=== PATIENT | male | born 1960 | race Caucasian/White ===

== ENCOUNTER 2017-01-22 08:22 | Inpatient (IN) | payer OTHER ==
[~2017-01-22] VITALS: Ht 170.2 cm; Wt 124.2 kg
[~2017-01-22 08:22] MED LIST: ALLO300T2 PO; ASPI-435 PO; DILT120T8 PO; FLUT0.0529; INDO50CA97 PO; POTATAB2 PO; WARF-246 PO; WARF5TAB90 PO
[2017-01-22] MEDS ORDERED: OMEP20CA9 PO (09:02)
[2017-01-22] MEDS ORDERED: LOSA100T65 PO (09:02)
[2017-01-22] MEDS ORDERED: FLNIN/ NAE (09:03)
[2017-01-22] MEDS ORDERED: ONDANSETRON INJ 2 MG/ML 2 ML VIAL IV STA (09:30)
[2017-01-22] MEDS ORDERED: HYDROmorphone INJ 1 MG/ML SYR IV STA (09:30)
[2017-01-22] MEDS ORDERED: GI COCKTAIL PO STA (09:30)
[2017-01-22] MEDS ORDERED: SODIUM CHLORIDE 0.9% 1000ML 1,000 ML IV STA (09:30)
[2017-01-22] MEDS ORDERED: ALUMINUM/MAGNESIUM SUSP 30 ML UDC ONE (09:35)
[2017-01-22] MEDS ORDERED: LIDOCAINE HCL 2% VISC SOLN 20 ML UDC ONE (09:35)
[2017-01-22 09:39] LABS: BASO % 0.3 %; BASO ABS # 0.04 K/uL (0-0.2); COMPLETE YES; EOS % 0.1 %; HEMATOCRIT 46.8 % (42-52); IG% 0.4 %; LYMPH % 5.8 %; LYMPH ABS # 0.88 K/uL (1.2-3.4); MEAN CELL VOLUME 91.4 fL (80-100); MEAN CORPUSCULAR HEMOGLOBIN 31.8 pg (25-34); MEAN CORPUSCULAR HGB CONC 34.8 g/dl (32-36); MEAN PLATELET VOLUME 10.8 fL (7.4-10.4); MONO % 3.8 %; NEUT % 89.6 %; PLATELET COUNT 187 K/uL (130-400); RED BLOOD COUNT 5.12 M/uL (4.7-6.1); WHITE BLOOD COUNT 15.19 K/uL (4.8-10.8)
[2017-01-22] MEDS ORDERED: OPTIRAY 320 IV PRN (09:45)
[2017-01-22 09:46] LABS: ALT/SGPT 100 U/L (12-78); BLOOD UREA NITROGEN 12 mg/dl (7-18); CALCIUM 9.3 mg/dl (8.5-10.1); CARBON DIOXIDE 26 mmol/L (21-32); CHLORIDE 107 mmol/L (98-107); CREATININE 0.99 mg/dl (0.60-1.40); GLUCOSE 136 mg/dl (70-99); POTASSIUM 4.3 mmol/L (3.5-5.1); SODIUM 142 mmol/L (136-145)
--- NOTE | 2017-01-22 09:48 | DIAGNOSTIC IMAGING REPORT ---
SINGLE VIEW CHEST CLINICAL HISTORY: Generalized abdominal pain. FINDINGS: An AP, portable, upright chest radiograph is compared to study dated 11/11/2011. The examination is degraded by portable technique, apical lordotic positioning, large body habitus, and patient rotation. The cardiomediastinal silhouette is unremarkable. The lungs and pleural spaces are clear. No pneumothorax is seen. The bony thorax is grossly intact. Surgical clips are noted in the upper abdomen. IMPRESSION: No active disease in the chest. Electronically signed by: Trey Trejo M.D. 01/22/2017 9:47 AM Dictated Date/Time: 01/22/2017 9:46 AM
[2017-01-22 09:52] LABS: ALKALINE PHOSPHATASE 141 U/L (45-117); AST/SGOT 41 U/L (15-37)
[2017-01-22 10:11] LABS: URINE APPEARANCE CLEAR (CLEAR); URINE BILIRUBIN NEG (NEG); URINE COLOR YELLOW; URINE NITRITE NEG (NEG); URINE PH 6.5 (4.5-7.5); URINE SPECIFIC GRAVITY 1.019 (1.000-1.030); UROBILINOGEN NEG (NEG); ZZUR CULT IF INDIC CLEAN CATCH NO
[2017-01-22 10:22] LABS: MANUAL MICROSCOPIC REQUIRED? NO; REVIEW REQ? NO
--- NOTE | 2017-01-22 10:37 | DIAGNOSTIC IMAGING REPORT ---
CT SCAN OF THE ABDOMEN AND PELVIS WITH IV CONTRAST CLINICAL HISTORY: Epigastric abdominal pain. COMPARISON STUDY: Abdominal CT dated 10/09/2011. TECHNIQUE: Following the IV administration of 92 cc of Optiray 320, CT scan of the abdomen and pelvis is performed from the lung bases to the proximal femora. Images are reviewed in the axial, sagittal, and coronal planes. IV contrast was administered without complication. Automated dose control exposure was utilized. CT DOSE: 1416.14 mGy.cm FINDINGS: Lung bases: The heart is mildly enlarged and without pericardial effusion. Coronary artery calcifications are observed. The lung bases are clear noting dependent atelectasis. There is a tiny hiatal hernia. Liver: The contrast-enhanced liver is normal in size and contour. The liver demonstrates diffusely diminished attenuation consistent with hepatic steatosis. Fatty sparing is noted adjacent to the gallbladder fossa. There is no intrahepatic biliary ductal dilatation. The hepatic veins and portal veins are patent. Gallbladder: The gallbladder is mildly distended. The gallbladder wall appears thickened and there is mild pericholecystic inflammation. The appearance suggests acute cholecystitis. Spleen: Normal in size and attenuation. Pancreas: Moderately atrophic and grossly unremarkable. Adrenal glands: Unremarkable. Kidneys: The contrast enhanced kidneys demonstrate cortical atrophy and are without hydronephrosis. The kidneys enhance symmetrically. There are numerous (greater than 20) nonobstructing bilateral renal calculi. These measure up to 6 mm. Scattered subcentimeter cortical hypodensities likely represent cysts but are too small for definitive characterization. Abdominal vasculature: The abdominal aorta is normal in course and caliber noting mild to moderate atherosclerotic calcification. Stomach and bowel: There are postoperative changes from partial gastrectomy. The duodenum is normal in configuration. No bowel obstruction is identified. The appendix is well-visualized and normal. Peritoneum: There is no intraperitoneal free air or abdominal ascites. Findings suggest previous ventral hernia repair. Lymphadenopathy: None. Pelvic viscera: The prostate gland is enlarged and heterogeneous, measuring 6.0 cm in transverse diameter. There is median lobe hypertrophy. The bladder wall appears thickened and trabeculated suggesting chronic outlet obstruction. Numerous calcified phleboliths are observed. Skeletal structures: No lytic or blastic lesions are seen. IMPRESSION: 1. Findings suggest acute cholecystitis. Correlation with clinical findings and serum bilirubin levels will be required. Consider ultrasound of the right upper quadrant for further assessment. 2. There are postoperative changes from partial gastrectomy. No bowel obstruction is identified. 4. Mild hepatic steatosis. 5. Mild cardiomegaly. 6. There are numerous bilateral nonobstructing renal calculi. 7. Prostatomegaly with evidence of chronic bladder outlet obstruction. 8. Additional changes as above. Electronically signed by: Trey Trejo M.D. 01/22/2017 10:35 AM Dictated Date/Time: 01/22/2017 10:29 AM
[2017-01-22] MEDS ORDERED: PIPERACILLIN/TAZOBACTAM 4.5 GM/100ML D5W IV STA (10:48)
[2017-01-22] MEDS ORDERED: HYDROmorphone INJ 0.5 MG/0.5 ML SYR IV STA (10:57)
[2017-01-22] MEDS ORDERED: MoRPHine SULFATE 2 MG/ML CARP IV PRN ×2 (11:30)
[2017-01-22] MEDS ORDERED: ONDANSETRON INJ 2 MG/ML 2 ML VIAL IV PRN (11:30)
--- NOTE | 2017-01-22 11:59 | History and Physical ---
History & Physical Date & Time of Service: Jan 22, 2017 at 11:52 Chief Complaint: Chest Pain And Abdominal Pain Primary Care Physician: Bryan Husain M.D. (MEDICAL) History of Present Illness Source: patient Chip is a 56 year-old male who presented to emergency department this morning with complaint of abdominal pain that began at 0230 this morning. Pain is described as sharp pain mostly in the right upper abdomen with radiation to the chest and straight to the back. Denies of ever having this type of pain before. Does have history of kidney stones but this pain is not similar. Unaware if he has gallstones. Denies of any previous gallbladder problems. Did have associated nausea and vomiting. No known fever but felt warm this am. Placed a cold towel on his head due to feeling warm. Denies of any chills, sweats, chest pain, shortness of breathing, diarrhea, constipation, blood in stools, black/tarry stools, difficulty urinating. Chip states he has had 4 abdominal surgeries. Had a partial gastrectomy in 2000 due to stomach cancer. Did not require chemotherapy or radiation. Had a upper abdominal hernia repair in 2004 with mesh placement and few months later rejected the mesh which required removal and further hernia surgery. In 2000 he had another hernia surgery due to failure again and states he had mesh from the diaphragm down to the lower abdomen. (20 x 30 mesh per patient) No other abdominal surgeries. CT scan showed distended gallbladder with pericholecystic fluid consistent with acute cholecystitis Slight leukocytosis of 15 and elevated AST/ALT/Alk Phos 41/100/141 respectively Total and direct bilirubin within normal limits. Past Medical/Surgical History Medical Problems: (1) Gout Status: Chronic (2) HTN (hypertension) Status: Chronic (3) Stomach cancer Status: Resolved Family History Heart disease Social History Smoking Status: Never Smoker Smokeless Tobacco Use: Yes (1 can of snuff lasts 2-3 days) Alcohol Use: none Drug Use: none Marital Status: single Housing status: lives alone Occupational Status: employed Multi-Drug Resistant Organisms History of MDRO: No Allergies Coded Allergies: Ranitidine (Unverified Allergy, Mild, ALLERGY, 11/11/11) Home Medications Scheduled Allopurinol (Zyloprim), 450 MG PO DAILY Aspirin (Aspirin 81), 81 MG PO DAILY Diltiazem Hcl (Cardizem), 120 MG PO DAILY Fluticasone Propionate (Fluticasone Propionate), 2 SPRAY CRISTINA DAILY Losartan Potassium (Cozaar), 100 MG PO DAILY Omeprazole (Prilosec), 20 MG PO DAILY Potassium Citrate (Alkalinizer (Urocit-K 10), 1 TAB PO DAILY Scheduled PRN Indomethacin (Indocin), 50 MG PO TID PRN for Pain Review of Systems Constitutional: No chills, No fever, No sweats Respiratory: No cough, No shortness of breath, No wheezing Cardiovascular: No chest pain Abdomen: + nausea, + pain, + vomiting, No constipation, No diarrhea Genitourinary - Male: No dysuria, No hematuria, No urinary frequency Endocrine: No fatigue Integumentary: No rash Physical Exam Vital Signs Date Time Temp Pulse Resp B/P Pulse Ox O2 Delivery O2 Flow Rate FiO2 01/22/17 11:50 59 16 126/67 95 Room Air 01/22/17 11:49 58 01/22/17 10:34 59 16 138/66 96 Room Air 01/22/17 10:02 55 16 125/62 94 Room Air 01/22/17 09:48 62 18 115/77 97 Room Air 01/22/17 08:54 60 01/22/17 08:52 97 Room Air 01/22/17 08:46 97 Room Air 01/22/17 08:31 36.6 57 18 132/78 98 Room Air General Appearance: WD/WN, no apparent distress Head: normocephalic, atraumatic Eyes: sclerae normal ENT: hearing grossly normal Neck: supple, trachea midline Respiratory/Chest: chest non-tender, lungs clear, normal breath sounds, no respiratory distress, no accessory muscle use Cardiovascular: regular rate, rhythm, no murmur Abdomen/GI: soft, no organomegaly, no pulsatile mass, + tenderness (RUQ, negative Muphy's sign), + pertinent finding (Midline laparotomy incision from diaphragm to just below umbilicus. obese abdomen) Neurologic/Psych: alert, normal mood/affect, oriented x 3 Skin: normal color, warm/dry, no rash Diagnostics Laboratory Results Results Past 24 Hours Test 01/22/17 08:40 01/22/17 09:50 Range/Units White Blood Count 15.19 4.8-10.8 K/uL Red Blood Count 5.12 4.7-6.1 M/uL Hemoglobin 16.3 14.0-18.0 g/dL Hematocrit 46.8 42-52 % Mean Corpuscular Volume 91.4 80-100 fL Mean Corpuscular Hemoglobin 31.8 25-34 pg Mean Corpuscular Hemoglobin Concent 34.8 32-36 g/dl Platelet Count 187 130-400 K/uL Mean Platelet Volume 10.8 7.4-10.4 fL Neutrophils (%) (Auto) 89.6 % Lymphocytes (%) (Auto) 5.8 % Monocytes (%) (Auto) 3.8 % Eosinophils (%) (Auto) 0.1 % Basophils (%) (Auto) 0.3 % Neutrophils # (Auto) 13.61 1.4-6.5 K/uL Lymphocytes # (Auto) 0.88 1.2-3.4 K/uL Monocytes # (Auto) 0.58 0.11-0.59 K/uL Eosinophils # (Auto) 0.02 0-0.5 K/uL Basophils # (Auto) 0.04 0-0.2 K/uL RDW Standard Deviation 45.4 36.4-46.3 fL RDW Coefficient of Variation 13.5 11.5-14.5 % Immature Granulocyte % (Auto) 0.4 % Immature Granulocyte # (Auto) 0.06 0.00-0.02 K/uL Sodium Level 142 136-145 mmol/L Potassium Level 4.3 3.5-5.1 mmol/L Chloride Level 107 98-107 mmol/L Carbon Dioxide Level 26 21-32 mmol/L Anion Gap 9.0 3-11 mmol/L Blood Urea Nitrogen 12 7-18 mg/dl Creatinine 0.99 0.60-1.40 mg/dl Est Creatinine Clear Calc Drug Dose 107.8 ml/min Estimated GFR () 99.7 Estimated GFR (Non- 86.0 BUN/Creatinine Ratio 12.0 10-20 Random Glucose 136 70-99 mg/dl Calcium Level 9.3 8.5-10.1 mg/dl Total Bilirubin 0.7 0.2-1 mg/dl Direct Bilirubin 0.2 0-0.2 mg/dl Aspartate Amino Transf (AST/SGOT) 41 15-37 U/L Alanine Aminotransferase (ALT/SGPT) 100 12-78 U/L Alkaline Phosphatase 141 45-117 U/L Troponin I < 0.015 0-0.045 ng/ml Total Protein 7.2 6.4-8.2 gm/dl Albumin 3.9 3.4-5.0 gm/dl Lipase 145 73-393 U/L Urine Color YELLOW Urine Appearance CLEAR CLEAR Urine pH 6.5 4.5-7.5 Urine Specific Hugo 1.019 1.000-1.030 Urine Protein NEG NEG Urine Glucose (UA) NEG NEG Urine Ketones NEG NEG Urine Occult Blood NEG NEG Urine Nitrite NEG NEG Urine Bilirubin NEG NEG Urine Urobilinogen NEG NEG Urine Leukocyte Esterase NEG NEG Urine WBC (Auto) 1-5 0-5 /hpf Urine RBC (Auto) 0-4 0-4 /hpf Urine Hyaline Casts (Auto) 1-5 0-5 /lpf Urine Epithelial Cells (Auto) 10-20 0-5 /lpf Urine Bacteria (Auto) NEG NEG Diagnostic Radiology CT SCAN OF THE ABDOMEN AND PELVIS WITH IV CONTRAST CLINICAL HISTORY: Epigastric abdominal pain. COMPARISON STUDY: Abdominal CT dated 10/09/2011. TECHNIQUE: Following the IV administration of 92 cc of Optiray 320, CT scan of the abdomen and pelvis is performed from the lung bases to the proximal femora. Images are reviewed in the axial, sagittal, and coronal planes. IV contrast was administered without complication. Automated dose control exposure was utilized. CT DOSE: 1416.14 mGy.cm FINDINGS: Lung bases: The heart is mildly enlarged and without pericardial effusion. Coronary artery calcifications are observed. The lung bases are clear noting dependent atelectasis. There is a tiny hiatal hernia. Liver: The contrast-enhanced liver is normal in size and contour. The liver demonstrates diffusely diminished attenuation consistent with hepatic steatosis. Fatty sparing is noted adjacent to the gallbladder fossa. There is no intrahepatic biliary ductal dilatation. The hepatic veins and portal veins are patent. Gallbladder: The gallbladder is mildly distended. The gallbladder wall appears thickened and there is mild pericholecystic inflammation. The appearance suggests acute cholecystitis. Spleen: Normal in size and attenuation. Pancreas: Moderately atrophic and grossly unremarkable. Adrenal glands: Unremarkable. Kidneys: The contrast enhanced kidneys demonstrate cortical atrophy and are without hydronephrosis. The kidneys enhance symmetrically. There are numerous (greater than 20) nonobstructing bilateral renal calculi. These measure up to 6 mm. Scattered subcentimeter cortical hypodensities likely represent cysts but are too small for definitive characterization. Abdominal vasculature: The abdominal aorta is normal in course and caliber noting mild to moderate atherosclerotic calcification. Stomach and bowel: There are postoperative changes from partial gastrectomy. The duodenum is normal in configuration. No bowel obstruction is identified. The appendix is well-visualized and normal. Peritoneum: There is no intraperitoneal free air or abdominal ascites. Findings suggest previous ventral hernia repair. Lymphadenopathy: None. Pelvic viscera: The prostate gland is enlarged and heterogeneous, measuring 6.0 cm in transverse diameter. There is median lobe hypertrophy. The bladder wall appears thickened and trabeculated suggesting chronic outlet obstruction. Numerous calcified phleboliths are observed. Skeletal structures: No lytic or blastic lesions are seen. IMPRESSION: 1. Findings suggest acute cholecystitis. Correlation with clinical findings and serum bilirubin levels will be required. Consider ultrasound of the right upper quadrant for further assessment. 2. There are postoperative changes from partial gastrectomy. No bowel obstruction is identified. 4. Mild hepatic steatosis. 5. Mild cardiomegaly. 6. There are numerous bilateral nonobstructing renal calculi. 7. Prostatomegaly with evidence of chronic bladder outlet obstruction. 8. Additional changes as above. CXR normal Impression Assessment and Plan Acute Cholecystitis -Leukocytosis of 15.1 - afebrile - CT scan showing distended gallbladder and wall thickening and pericholecystic fluid - Elevated LFTS, bilirubin within normal limits Plan: Plan to admit patient to Med/Surg under observation with IV fluids, IV antibiotics, IV pain medication prn Will order an ultrasound of the RUQ to evaluate for any gallstones , if equivocal will order HIDA scan Patient's pain is controlled, no acute abdomen, negative Greenberg's sign Given patient's extensive abdominal surgery history of hernia repairs with mesh and most recent placement of large mesh 20 x 30 will see if patients pain can be controlled with conservative treatment and re-evaluate Will recheck am labs including cbc, bmp, and LFTs May have clear liquids NPO after midnight SCDs Dr. Arango has seen and examined patient, agrees with assessment and plan. Level of Care Med/Surg VTE Prophylaxis VTE Risk Assessment Done? Y/N: Yes Risk Level: Low Given or contraindicated: SCD's Note I interview and examined this patient and I agree with the above note. He has upper abdominal pain with a CT suggesting a 4 mm gallbladder wall and fluid around the gallbladder. He has had extensive upper abdominal surgery which I think would make surgical intervention difficult. I would get an ultrasound prior to entertaining surgical intervention.
--- NOTE | 2017-01-22 12:34 | DIAGNOSTIC IMAGING REPORT ---
ULTRASOUND RIGHT UPPER QUADRANT ABDOMEN CLINICAL HISTORY: Epigastric abdominal pain. COMPARISON STUDY: Abdominal CT dated 01/22/2017. TECHNIQUE: Real-time, grayscale, and color flow sonography of the right upper quadrant of the abdomen was performed. Images are reviewed in the transverse and longitudinal planes. FINDINGS: Liver: The liver is normal in size and demonstrates heterogeneously increased echotexture echotexture consistent with hepatic steatosis. Fatty sparing is seen adjacent to gallbladder fossa. There is no intrahepatic biliary ductal dilatation. The main portal vein is patent. Gallbladder: Small gallbladder polyps measure up to 7 mm. The gallbladder is normal in appearance. No gallstones are identified. There is no gallbladder wall thickening or pericholecystic fluid. A sonographic Greenberg's sign is reportedly absent. The common bile duct measures up to 0.5 cm in diameter. Pancreas: Not well visualized due to overlying bowel gas. Right kidney: Survey images of the right kidney demonstrate cortical atrophy. There is no hydronephrosis. Ascites: None. IMPRESSION: 1. No gallstones are identified and there is no sonographic evidence of acute cholecystitis. The CT findings could not be corroborated. If there is strong clinical concern for acute cholecystitis consider nuclear hepatobiliary scan to assess for patency of the cystic duct. 2. Hepatic steatosis. 3. The pancreas was not well visualized due to overlying bowel gas. 4. A 7 mm gallbladder polyp is incidentally noted. Electronically signed by: Trey Trejo M.D. 01/22/2017 12:32 PM Dictated Date/Time: 01/22/2017 12:29 PM
[2017-01-22] MEDS ORDERED: IV FLUIDS COMPLETED PRN (12:45)
[2017-01-22] MEDS ORDERED: MoRPHine SULFATE 4 MG/ML 1 ML CARP\\VIAL ONE (13:34)
[2017-01-22 14:30] VITALS: BP 149/77; PULSE 56; TEMP 36.8; O2SAT 95
[2017-01-22] MEDS: SODIUM CHLORIDE 0.9% 1000ML 1,000 ML IV SCH ×2 (14:59→19:29)
[2017-01-22 15:01] VITALS: BP 118/75; PULSE 72; TEMP 36.3; O2SAT 95
--- NOTE | 2017-01-22 15:04 | EMERGENCY ROOM VISIT NOTE ---
History Report prepared by Adam: Shae Og Under the Supervision of: Dr. Ab Pearce D.O. First contact with patient: 09:23 Chief Complaint: CHEST PAIN Stated Complaint: CHEST PAIN AND ABDOMINAL PAIN Nursing Triage Summary: Abdominal pain radiating to chest and back starting 0230. Took 4 baby asa [employer]. pt also reports hx of stomach ca in 2000 History of Present Illness The patient is a 56 year old male who presents to the Emergency Room with complaints of persistent abdominal pain starting around 0230 this morning. He describes his pain as a burning and rates his discomfort as a 9/10 in severity. The pain radiates up into his chest and into his back. He has experienced a similar pain with hernias before, but states that this pain is worse and persisting. He states that the pain is worse than the kidney stones he had previously experienced. He denies any jaw pain, arm pain, or SOB. There is no change to his pain when he is walking or lying down. His last bowel movement was 3 hours ago and was normal. The patient still has his gallbladder and appendix. He denies any history of problems with his aorta. He has a history of stomach cancer and hypertension. Source of History: patient Onset: 0230 this morning Position: abdomen Symptom Intensity: 9/10 Quality: burning Timing: other (persistent) Associated Symptoms: + back pain, + chest pain, No SOB Note: Pt denies changes in bowel movements, jaw pain or arm pain. Review of Systems See HPI for pertinent positives & negatives. A total of 10 systems reviewed and were otherwise negative. Past Medical & Surgical Medical Problems: (1) Acute cholecystitis (2) Gout (3) HTN (hypertension) (4) Stomach cancer Family History Heart disease Social History Smoking Status: Never Smoker Alcohol Use: occasionally Marital Status: single Housing Status: lives with family Occupation Status: employed Current/Historical Medications Scheduled Allopurinol (Zyloprim), 450 MG PO DAILY Aspirin (Aspirin 81), 81 MG PO DAILY Diltiazem Hcl (Cardizem), 120 MG PO DAILY Fluticasone Propionate (Fluticasone Propionate), 2 SPRAY CRISTINA DAILY Losartan Potassium (Cozaar), 100 MG PO DAILY Omeprazole (Prilosec), 20 MG PO DAILY Potassium Citrate (Alkalinizer (Urocit-K 10), 1 TAB PO DAILY Scheduled PRN Indomethacin (Indocin), 50 MG PO TID PRN for Pain Allergies Coded Allergies: Ranitidine (Unverified Allergy, Mild, ALLERGY, 11/11/11) Physical Exam Vital Signs Date Time Temp Pulse Resp B/P Pulse Ox O2 Delivery O2 Flow Rate FiO2 01/22/17 10:34 59 16 138/66 96 Room Air 01/22/17 10:02 55 16 125/62 94 Room Air 01/22/17 09:48 62 18 115/77 97 Room Air 01/22/17 08:54 60 01/22/17 08:52 97 Room Air 01/22/17 08:46 97 Room Air 01/22/17 08:31 36.6 57 18 132/78 98 Room Air Physical Exam GENERAL: Sitting up in bed, holding epigastric region EYE EXAM: normal conjunctiva OROPHARYNX: no exudate, no erythema, lips, buccal mucosa, and tongue normal and mucous membranes are moist NECK: supple, no nuchal rigidity, no adenopathy, non-tender LUNGS: Clear to auscultation. Normal chest wall mechanics HEART: no murmurs, S1 normal and S2 normal ABDOMEN: abdomen soft, normo-active bowel sounds, no masses, no rebound or guarding. Tenderness to palpation supraumbilically without RUQ tenderness. BACK: Back is symmetrical on inspection and there is no deformity, no midline tenderness, no CVA tenderness. SKIN: no rashes and no bruising UPPER EXTREMITIES: upper extremities are grossly normal. LOWER EXTREMITIES: No pitting edema. NEURO EXAM: Normal sensorium, cranial nerves II-XII grossly intact, normal speech, no gross weakness of arms, no gross weakness of legs. Medical Decision & Procedures ER Provider Diagnostic Interpretation: Xray results per the radiologist and my interpretation. Other results have been interpreted by the radiologist and reviewed by me. SINGLE VIEW CHEST CLINICAL HISTORY: Generalized abdominal pain. FINDINGS: An AP, portable, upright chest radiograph is compared to study dated 11/11/2011. The examination is degraded by portable technique, apical lordotic positioning, large body habitus, and patient rotation. The cardiomediastinal silhouette is unremarkable. The lungs and pleural spaces are clear. No pneumothorax is seen. The bony thorax is grossly intact. Surgical clips are noted in the upper abdomen. IMPRESSION: No active disease in the chest. Electronically signed by: Trey Trejo M.D. 01/22/2017 9:47 AM Dictated Date/Time: 01/22/2017 9:[address] SCAN OF THE ABDOMEN AND PELVIS WITH IV CONTRAST CLINICAL HISTORY: Epigastric abdominal pain. COMPARISON STUDY: Abdominal CT dated 10/09/2011. TECHNIQUE: Following the IV administration of 92 cc of Optiray 320, CT scan of the abdomen and pelvis is performed from the lung bases to the proximal femora. Images are reviewed in the axial, sagittal, and coronal planes. IV contrast was administered without complication. Automated dose control exposure was utilized. CT DOSE: 1416.14 mGy.cm FINDINGS: Lung bases: The heart is mildly enlarged and without pericardial effusion. Coronary artery calcifications are observed. The lung bases are clear noting dependent atelectasis. There is a tiny hiatal hernia. Liver: The contrast-enhanced liver is normal in size and contour. The liver demonstrates diffusely diminished attenuation consistent with hepatic steatosis. Fatty sparing is noted adjacent to the gallbladder fossa. There is no intrahepatic biliary ductal dilatation. The hepatic veins and portal veins are patent. Gallbladder: The gallbladder is mildly distended. The gallbladder wall appears thickened and there is mild pericholecystic inflammation. The appearance suggests acute cholecystitis. Spleen: Normal in size and attenuation. Pancreas: Moderately atrophic and grossly unremarkable. Adrenal glands: Unremarkable. Kidneys: The contrast enhanced kidneys demonstrate cortical atrophy and are without hydronephrosis. The kidneys enhance symmetrically. There are numerous (greater than 20) nonobstructing bilateral renal calculi. These measure up to 6 mm. Scattered subcentimeter cortical hypodensities likely represent cysts but are too small for definitive characterization. Abdominal vasculature: The abdominal aorta is normal in course and caliber noting mild to moderate atherosclerotic calcification. Stomach and bowel: There are postoperative changes from partial gastrectomy. The duodenum is normal in configuration. No bowel obstruction is identified. The appendix is well-visualized and normal. Peritoneum: There is no intraperitoneal free air or abdominal ascites. Findings suggest previous ventral hernia repair. Lymphadenopathy: None. Pelvic viscera: The prostate gland is enlarged and heterogeneous, measuring 6.0 cm in transverse diameter. There is median lobe hypertrophy. The bladder wall appears thickened and trabeculated suggesting chronic outlet obstruction. Numerous calcified phleboliths are observed. Skeletal structures: No lytic or blastic lesions are seen. IMPRESSION: 1. Findings suggest acute cholecystitis. Correlation with clinical findings and serum bilirubin levels will be required. Consider ultrasound of the right upper quadrant for further assessment. 2. There are postoperative changes from partial gastrectomy. No bowel obstruction is identified. 4. Mild hepatic steatosis. 5. Mild cardiomegaly. 6. There are numerous bilateral nonobstructing renal calculi. 7. Prostatomegaly with evidence of chronic bladder outlet obstruction. 8. Additional changes as above. Electronically signed by: Trey Trejo M.D. 01/22/2017 10:35 AM Dictated Date/Time: 01/22/2017 10:29 AM Laboratory Results 01/22/17 08:40 Red Blood Count 5.12, Mean Corpuscular Volume 91.4, Mean Corpuscular Hemoglobin 31.8, Mean Corpuscular Hemoglobin Concent 34.8, Mean Platelet Volume 10.8, Neutrophils (%) (Auto) 89.6, Lymphocytes (%) (Auto) 5.8, Monocytes (%) (Auto) 3.8, Eosinophils (%) (Auto) 0.1, Basophils (%) (Auto) 0.3, Neutrophils # (Auto) 13.61, Lymphocytes # (Auto) 0.88, Monocytes # (Auto) 0.58, Eosinophils # (Auto) 0.02, Basophils # (Auto) 0.04 01/22/17 08:40 Test 01/22/17 08:40 01/22/17 09:50 White Blood Count 15.19 K/uL (4.8-10.8) Red Blood Count 5.12 M/uL (4.7-6.1) Hemoglobin 16.3 g/dL (14.0-18.0) Hematocrit 46.8 % (42-52) Mean Corpuscular Volume 91.4 fL (80-100) Mean Corpuscular Hemoglobin 31.8 pg (25-34) Mean Corpuscular Hemoglobin Concent 34.8 g/dl (32-36) Platelet Count 187 K/uL (130-400) Mean Platelet Volume 10.8 fL (7.4-10.4) Neutrophils (%) (Auto) 89.6 % Lymphocytes (%) (Auto) 5.8 % Monocytes (%) (Auto) 3.8 % Eosinophils (%) (Auto) 0.1 % Basophils (%) (Auto) 0.3 % Neutrophils # (Auto) 13.61 K/uL (1.4-6.5) Lymphocytes # (Auto) 0.88 K/uL (1.2-3.4) Monocytes # (Auto) 0.58 K/uL (0.11-0.59) Eosinophils # (Auto) 0.02 K/uL (0-0.5) Basophils # (Auto) 0.04 K/uL (0-0.2) RDW Standard Deviation 45.4 fL (36.4-46.3) RDW Coefficient of Variation 13.5 % (11.5-14.5) Immature Granulocyte % (Auto) 0.4 % Immature Granulocyte # (Auto) 0.06 K/uL (0.00-0.02) Anion Gap 9.0 mmol/L (3-11) Est Creatinine Clear Calc Drug Dose 107.8 ml/min Estimated GFR () 99.7 Estimated GFR (Non- 86.0 BUN/Creatinine Ratio 12.0 (10-20) Calcium Level 9.3 mg/dl (8.5-10.1) Total Bilirubin 0.7 mg/dl (0.2-1) Direct Bilirubin 0.2 mg/dl (0-0.2) Aspartate Amino Transf (AST/SGOT) 41 U/L (15-37) Alanine Aminotransferase (ALT/SGPT) 100 U/L (12-78) Alkaline Phosphatase 141 U/L (45-117) Troponin I < 0.015 ng/ml (0-0.045) Total Protein 7.2 gm/dl (6.4-8.2) Albumin 3.9 gm/dl (3.4-5.0) Lipase 145 U/L (73-393) Urine Color YELLOW Urine Appearance CLEAR (CLEAR) Urine pH 6.5 (4.5-7.5) Urine Specific [place] 1.019 (1.000-1.030) Urine Protein NEG (NEG) Urine Glucose (UA) NEG (NEG) Urine Ketones NEG (NEG) Urine Occult Blood NEG (NEG) Urine Nitrite NEG (NEG) Urine Bilirubin NEG (NEG) Urine Urobilinogen NEG (NEG) Urine Leukocyte Esterase NEG (NEG) Urine WBC (Auto) 1-5 /hpf (0-5) Urine RBC (Auto) 0-4 /hpf (0-4) Urine Hyaline Casts (Auto) 1-5 /lpf (0-5) Urine Epithelial Cells (Auto) 10-20 /lpf (0-5) Urine Bacteria (Auto) NEG (NEG) Laboratory results per my review. Medications Administered Medications (Trade) Dose Ordered Sig/Rupa Route Start Time Stop Time Status Last Admin Dose Admin Sodium Chloride (Nss 1000ml) 1,000 ml @ 999 mls/hr Q1H1M STAT IV 01/22/17 09:30 01/22/17 10:30 DC 01/22/17 09:41 999 MLS/HR Ondansetron HCl (Zofran Inj) 4 mg NOW STAT IV 01/22/17 09:30 01/22/17 09:33 DC 01/22/17 09:40 4 MG Hydromorphone HCl (Dilaudid Inj) 1 mg NOW STAT IV 01/22/17 09:30 01/22/17 09:33 DC 01/22/17 09:41 1 MG Al Hydroxide/Mg Hydroxide (Maalox Susp) 30 ml STK-MED ONCE .ROUTE 01/22/17 09:35 01/22/17 09:39 DC 01/22/17 09:40 30 ML Lidocaine HCl (Viscous Lidocaine 2% Soln) 20 ml STK-MED ONCE .ROUTE 01/22/17 09:35 01/22/17 09:39 DC 01/22/17 09:45 20 ML Piperacillin Sod/ Tazobactam Sod (Zosyn Iv) 4.5 gm NOW STAT IV 01/22/17 10:48 01/22/17 10:49 DC 01/22/17 11:01 4.5 GM Hydromorphone HCl 0.5 mg 0.5 mg NOW STAT IV 01/22/17 10:57 01/22/17 10:58 DC 01/22/17 11:01 0.5 MG Sodium Chloride (Nss 1000ml) 1,000 ml @ 125 mls/hr Q8H IV 01/22/17 11:28 02/21/17 11:27 01/22/17 14:59 125 MLS/HR ECG Indication: chest pain Rate (beats per minute): 54 Rhythm: sinus bradycardia Findings: no ectopy, other (normal axis) ED Course ED COURSE: Vital signs were reviewed and showed normal vitals. The patients medical record was reviewed The above diagnostic studies were performed and reviewed. ED treatments and interventions as stated above. 09: The patient was evaluated in room A11B. A complete history and physical examination was performed. 0930: Gi Cocktail 24 ml PO, Dilaudid Inj 1 mg IV, Zofran Inj 4 mg IV, NSS 1000 ml @ 999 mls/hr IV. 0935: Lidocaine HCl 20 ml, Maalox Susp 30 ml PO. 1048: Zosyn Iv 4.5 gm IV. 1050: Upon reevaluation, the patient is resting comfortably.I discussed my findings with the patient and he understands and agrees with the treatment plan. Based on the patients age, coexisting illnesses, exam and lab findings the decision to treat as an inpatient was made. The patient remained stable while under my care. The patient will be evaluated for further management. 1057: I discussed the patient's case with Dr. Arango, [facility]. He will evaluate the patient. 1135: I reevaluated the patient. He is resting comfortably. Medical Decision Differential diagnoses includes but is not limited to gastritis, peptic ulcer disease, GERD, gallbladder disease, pancreatitis, small bowel obstruction, acute coronary syndrome, pericarditis, ischemic bowel, irritable bowel disease, irritable bowel syndrome, appendicitis, diverticulitis, malignancy, hernia, urinary tract infection, torsion, [/ectopic (if female)], perforation, trauma, infectious. Patient is a 56-year-old male who presents the ER for epigastric without pain which is been present since around 2:58 AM this morning. On exam he does have tenderness in the epigastric region. Labs show a leukocytosis of 15,000. AST and ALTs are slightly elevated. Bilirubin is normal. Troponin was negative. EKG was unchanged. CT of his abdomen pelvis shows acute cholecystitis. Patient was given IV Zosyn, 2 doses of Dilaudid and fluids. Case was discussed with general surgery and patient was admitted to internal medicine for acute cholecystitis. Consults Time Called: 1048 Consulting Physician: Dr. Arango, [facility] Returned Call: [phone] I reviewed the patient's case with him. He will evaluate the patient. Impression Primary Impression: Acute cholecystitis Additional Impression: Leukocytosis Scribe Attestation The scribe's documentation has been prepared under my direction and personally reviewed by me in its entirety. I confirm that the note above accurately reflects all work, treatment, procedures, and medical decision making performed by me. Departure Information Dispostion Being Evaluated By Surgeon Referrals Bryan Husain M.D. (MEDICAL) (PCP) Patient Instructions My [facility] Problem Qualifiers Additional Impression: Leukocytosis Leukocytosis type: unspecified Qualified Codes: D72.829 - Elevated white blood cell count, unspecified
[2017-01-22] MEDS: CEFOXITIN IV 2,000 MG in DEXTROSE 5% 50ML 50 ML IV SCH ×2 (16:35→22:31)
[2017-01-22 16:45] VITALS: BP 118/75; PULSE 72; TEMP 36.3; Ht 170.2 cm; Wt 124.2 kg
[2017-01-22] MEDS: MoRPHine SULFATE 2 MG/ML CARP IV PRN ×2 (19:29→23:52)
[2017-01-22 23:02] VITALS: BP 127/71; PULSE 88; TEMP 37; O2SAT 93
[2017-01-23] MEDS: SODIUM CHLORIDE 0.9% 1000ML 1,000 ML IV SCH ×3 (03:19→20:32)
[2017-01-23] MEDS: CEFOXITIN IV 2,000 MG in DEXTROSE 5% 50ML 50 ML IV SCH ×4 (03:52→21:58)
[2017-01-23 06:41] LABS: HEMATOCRIT 46.8 % (42-52); MEAN CORPUSCULAR HEMOGLOBIN 32.1 pg (25-34); MEAN CORPUSCULAR HGB CONC 34.2 g/dl (32-36); MEAN PLATELET VOLUME 10.9 fL (7.4-10.4); PLATELET COUNT 162 K/uL (130-400); RED BLOOD COUNT 4.98 M/uL (4.7-6.1); WHITE BLOOD COUNT 13.44 K/uL (4.8-10.8)
[2017-01-23 07:16] VITALS: BP 108/65; PULSE 74; TEMP 37.1; O2SAT 92
[2017-01-23 07:17] LABS: BUN/CREATININE RATIO 9.7 (10-20); CALCIUM 8.5 mg/dl (8.5-10.1); CREATININE 0.98 mg/dl (0.60-1.40); POTASSIUM 4.1 mmol/L (3.5-5.1)
[2017-01-23 07:20] VITALS: O2SAT 92
[2017-01-23] MEDS: MoRPHine SULFATE 2 MG/ML CARP IV PRN (09:15)
--- NOTE | 2017-01-23 10:03 | DIAGNOSTIC IMAGING REPORT ---
NUCLEAR MEDICINE HEPATOBILIARY SCAN HISTORY: Pain. Nausea. RUQ abdominal pain, nausea COMPARISON: CT 01/22/2017. Ultrasound 01/22/2017 TECHNIQUE: Immediately following the intravenous administration of 5.3 mCi Tc-99m Choletec, dynamic anterior abdominal imaging was performed. FINDINGS: Initial images to 60 minutes showed no evidence for opacification of the gallbladder. Following the administration of 2 mg of morphine sulfate, and delayed images also fail to demonstrate gallbladder. There is a small focus of increased activity at the level of the duodenal sweep up to be potential diverticulum. Delayed images failed to demonstrate the gallbladder. IMPRESSION: 1. Cystic duct obstruction. 2. Appearance suggests probable acute acalculus cholecystitis Electronically signed by: Melvin Fernandez M.D. 01/23/2017 10:01 AM Dictated Date/Time: 01/23/2017 9:57 AM
--- NOTE | 2017-01-23 10:27 | Surgery Progress Note ---
Surgery Progress Note Date of Service Jan 23, 2017. Subjective Post OP Day: HD # 1 + diet (tolerate clear liquids), + feeling well, + pain controlled, No SOB, No chest pain, No complaints, No nausea, No vomiting Objective Vital Signs: Date Time Temp Pulse Resp B/P Pulse Ox O2 Delivery O2 Flow Rate FiO2 01/23/17 07:20 92 Room Air 01/23/17 07:16 37.1 74 16 108/65 92 Room Air 01/22/17 23:55 Room Air 01/22/17 23:02 37.0 88 18 127/71 93 Room Air 01/22/17 16:45 36.3 72 20 118/75 Room Air 01/22/17 16:00 Room Air 01/22/17 15:01 36.3 72 20 118/75 95 Room Air 01/22/17 14:30 36.8 56 20 149/77 95 Room Air 01/22/17 13:27 60 18 124/74 97 Room Air 01/22/17 11:50 59 16 126/67 95 Room Air 01/22/17 11:49 58 01/22/17 10:34 59 16 138/66 96 Room Air General Appearance: WD/WN, no apparent distress Head: normocephalic, atraumatic Neck: trachea midline Respiratory/Chest: no respiratory distress, no accessory muscle use Abdomen: non distended, soft, no organomegaly, no pulsatile mass, + tenderness (very mild tenderness on deep palpation of the RUQ, negative Greenberg's sign) Laboratory Results: Results Past 24 Hours Test 01/23/17 06:13 Range/Units White Blood Count 13.44 4.8-10.8 K/uL Red Blood Count 4.98 4.7-6.1 M/uL Hemoglobin 16.0 14.0-18.0 g/dL Hematocrit 46.8 42-52 % Mean Corpuscular Volume 94.0 80-100 fL Mean Corpuscular Hemoglobin 32.1 25-34 pg Mean Corpuscular Hemoglobin Concent 34.2 32-36 g/dl RDW Standard Deviation 47.6 36.4-46.3 fL RDW Coefficient of Variation 14.0 11.5-14.5 % Platelet Count 162 130-400 K/uL Mean Platelet Volume 10.9 7.4-10.4 fL Sodium Level 142 136-145 mmol/L Potassium Level 4.1 3.5-5.1 mmol/L Chloride Level 108 98-107 mmol/L Carbon Dioxide Level 26 21-32 mmol/L Anion Gap 8.0 3-11 mmol/L Blood Urea Nitrogen 10 7-18 mg/dl Creatinine 0.98 0.60-1.40 mg/dl Est Creatinine Clear Calc Drug Dose 108.9 ml/min Estimated GFR () 100.9 Estimated GFR (Non- 87.1 BUN/Creatinine Ratio 9.7 10-20 Random Glucose 98 70-99 mg/dl Calcium Level 8.5 8.5-10.1 mg/dl Total Bilirubin 1.5 0.2-1 mg/dl Direct Bilirubin 0.3 0-0.2 mg/dl Aspartate Amino Transf (AST/SGOT) 26 15-37 U/L Alanine Aminotransferase (ALT/SGPT) 69 12-78 U/L Alkaline Phosphatase 119 45-117 U/L Total Protein 6.0 6.4-8.2 gm/dl Albumin 3.4 3.4-5.0 gm/dl Diagnostic Interpretation: NUCLEAR MEDICINE HEPATOBILIARY SCAN HISTORY: Pain. Nausea. RUQ abdominal pain, nausea COMPARISON: CT 01/22/2017. Ultrasound 01/22/2017 TECHNIQUE: Immediately following the intravenous administration of 5.3 mCi Tc-99m Choletec, dynamic anterior abdominal imaging was performed. FINDINGS: Initial images to 60 minutes showed no evidence for opacification of the gallbladder. Following the administration of 2 mg of morphine sulfate, and delayed images also fail to demonstrate gallbladder. There is a small focus of increased activity at the level of the duodenal sweep up to be potential diverticulum. Delayed images failed to demonstrate the gallbladder. IMPRESSION: 1. Cystic duct obstruction. 2. Appearance suggests probable acute acalculus cholecystitis Assessment & Plan Acute acalculous Cholecystitis - RUQ abdominal pain - CT scan and US unequivocal - HIDA scan showing cyst duct obstruction - increase in Total bilirubin to 1.5 and direct bilirubin 0.3 - Slight decrease in Leukocytosis of 13.4 (15.19 on admission) - pain is minimal to non existent at this time Plan: Continue IV antibiotics Continue pain management prn repeat am labs continue clear liquids Will continue to monitor. Given patient's abdominal pain is minimal, may not require cholecystectomy unless pain reoccurs or labs indicate need for further treatment. Dr. Arango to see patient later today Discussed patient with Dr. Arango who is in agreement with above stated findings and treatment plan.
[2017-01-23 15:30] VITALS: BP 124/72; PULSE 85; TEMP 37.6; O2SAT 93
[2017-01-23 22:46] VITALS: BP 133/69; PULSE 65; TEMP 37; O2SAT 95
[2017-01-24] MEDS: SODIUM CHLORIDE 0.9% 1000ML 1,000 ML IV SCH ×3 (03:49→20:46)
[2017-01-24] MEDS: CEFOXITIN IV 2,000 MG in DEXTROSE 5% 50ML 50 ML IV SCH ×4 (03:49→22:28)
--- NOTE | 2017-01-24 06:43 | Surgery Progress Note ---
Surgery Progress Note Date of Service Jan 24, 2017. Subjective + flatus, No nausea, No vomiting Denies pain Objective Vital Signs: Date Time Temp Pulse Resp B/P Pulse Ox O2 Delivery O2 Flow Rate FiO2 01/23/17 22:46 37.0 65 16 133/69 95 Room Air 01/23/17 19:20 Room Air 01/23/17 15:30 37.6 85 16 124/72 93 Room Air 01/23/17 07:20 92 Room Air 01/23/17 07:16 37.1 74 16 108/65 92 Room Air Abdomen: normal bowel sounds, non tender, non distended, soft Laboratory Results: Results Past 24 Hours Test 01/24/17 04:44 Range/Units Assessment & Plan Abd pain has resolved Await WBC today Continue with antibiotics Full liquid diet
[2017-01-24 06:57] VITALS: BP 109/65; PULSE 72; TEMP 37; O2SAT 92
[2017-01-24 07:19] LABS: HEMATOCRIT 46.8 % (42-52); MEAN CELL VOLUME 93.4 fL (80-100); MEAN CORPUSCULAR HEMOGLOBIN 32.1 pg (25-34); MEAN CORPUSCULAR HGB CONC 34.4 g/dl (32-36); MEAN PLATELET VOLUME 10.8 fL (7.4-10.4); PLATELET COUNT 167 K/uL (130-400); RED BLOOD COUNT 5.01 M/uL (4.7-6.1); WHITE BLOOD COUNT 12.81 K/uL (4.8-10.8)
[2017-01-24 07:45] LABS: BUN/CREATININE RATIO 10.9 (10-20); CALCIUM 8.6 mg/dl (8.5-10.1); CREATININE 0.94 mg/dl (0.60-1.40); POTASSIUM 3.7 mmol/L (3.5-5.1)
[2017-01-24] MEDS ORDERED: HYDROmorphone INJ 2 MG/ML SYR/VIAL ONE (14:25)
[2017-01-24 15:55] VITALS: BP 132/77; PULSE 81; TEMP 37.4; O2SAT 95
--- NOTE | 2017-01-24 15:59 | DIAGNOSTIC IMAGING REPORT ---
MRCP CLINICAL HISTORY: Right upper quadrant abdominal pain. Elevated bilirubin. Acute cholecystitis. COMPARISON STUDY: CT scan dated 01/22/2017, ultrasound dated 01/22/2017, hepatobiliary scan dated 01/23/2017 FINDINGS: There is pericholecystic edema. The common bile duct is of normal caliber. No common bile duct filling defects are visualized. There is periduodenal edema. There is perinephric edema most pronounced on the right. There is no evidence of pancreatic ductal dilatation. There is a duodenal diverticulum. There is mild edema within the pancreaticoduodenal groove. There is a gallbladder filling defect consistent with a calculus. IMPRESSION: 1. Findings indicative of acute cholecystitis. There is secondary pericholecystic edema, as well as edema within the pancreaticoduodenal groove. 2. Duodenal diverticulum 3. No evidence of ductal dilatation. No evidence of common bile duct calculus. Electronically signed by: Luis Manuel De La Rosa M.D. 01/24/2017 3:57 PM Dictated Date/Time: 01/24/2017 3:50 PM
--- NOTE | 2017-01-24 17:15 | Discharge Instructions ---
Discharge Instructions Date of Service Jan 24, 2017. Admission Reason for Admission: Acutecholecystitis Discharge Discharge Diagnosis / Problem: Acute Acalculous cholecystitis Discharge Goals Goal(s): Therapeutic intervention Activity Recommendations Activity Limitations: as noted below Will be given instructions when discharged from [place] Instructions / Follow-Up Instructions / Follow-Up You need to call Surgeon at [facility] in [place] for a evaluation appointment in regards to this episode of acute cholecystitis You will be given oral Antibiotics for 7 more days, please take entire course of antibiotics as prescribed You will be given Narcotic pain medication, only take as needed. May constipate so take stool softener and plenty of fluids. Advised to avoid fatty/greasy meals to avoid further irritation of the gallbladder. Current Hospital Diet Patient's current hospital diet: Low fiber diet Discharge Diet Recommended Diet: Low Fiber Diet Pending Studies Studies pending at discharge: no Work Instructions Additional Instructions: You may return to work there are no restricitons for work duties Medical Emergencies . Who to Call and When: Medical Emergencies: If at any time you feel your situation is an emergency, please call 911 immediately. . Non-Emergent Contact Non-Emergency issues call your: Primary Care Provider, Surgeon Call Non-Emergent contact if: you have a fever, your pain is not controlled, your pain is worsening . "Provider Documentation" section prepared by Li Lancaster. VTE Core Measure Inpt VTE Proph given/why not?: SCD's
--- NOTE | 2017-01-24 17:30 | Discharge Summary ---
Discharge Summary Dates Admission Date / Time: Jan 23, 2017 at 07:49 Discharge Date: Jan 24, 2017 Dispostion / Condition Discharge Disposition: Acute care facility Condition at Discharge: Good Principal Diagnosis (1) Acute cholecystitis Consultations / Procedures Consultations: None Procedures: None Pending Studies / Follow-Up NOne Medication Reconciliation Continued Medications: Allopurinol (Zyloprim) 300 Mg Tab 450 MG PO DAILY Aspirin (Aspirin 81) 81 Mg Tab 81 MG PO DAILY Diltiazem Hcl (Cardizem) 120 Mg Tab 120 MG PO DAILY Fluticasone Propionate (Fluticasone Propionate) 120 Sprays/6000 Mcg Inha 2 SPRAY CRISTINA DAILY Indomethacin (Indocin) 50 Mg Cap 50 MG PO TID PRN for Pain, #20 CAP WITH FOOD UNTIL PAIN RESOLVES Losartan Potassium (Cozaar) 100 Mg Tab 100 MG PO DAILY Omeprazole (Prilosec) 20 Mg Cap 20 MG PO DAILY Potassium Citrate (Alkalinizer (Urocit-K 10) 1,080 Mg Tab 1 TAB PO DAILY Admission HPI Per the Admitting provider: Chip is a 56 year-old male who presented to emergency department on 01/22/17 with complaint of abdominal pain that began at 0230 that morning. Pain was described as sharp pain mostly in the right upper abdomen with radiation to the chest and straight to the back. Denied of ever having this type of pain before. Does have history of kidney stones but the pain was not similar. Unaware if he has gallstones. Denied of any previous gallbladder problems. Did have associated nausea and vomiting. No known fever but felt warm. Placed a cold towel on his head due to feeling warm. Denied of any chills, sweats, chest pain, shortness of breathing, diarrhea, constipation, blood in stools, black/tarry stools, difficulty urinating. Chip has had 4 abdominal surgeries. Had a partial gastrectomy in 2000 due to stomach cancer. Did not require chemotherapy or radiation. Had a upper abdominal hernia repair in 2004 with mesh placement and few months later rejected the mesh which required removal and further hernia surgery. In 2000 he had another hernia surgery due to failure again and states he had mesh from the diaphragm down to the lower abdomen. (20 x 30 mesh per patient) No other abdominal surgeries. CT scan showed distended gallbladder with pericholecystic fluid consistent with acute cholecystitis Slight leukocytosis of 15 and elevated AST/ALT/Alk Phos 41/100/141 respectively Total and direct bilirubin within normal limits. Admission Exam Per the Admitting provider: General Appearance: WD/WN, no apparent distress Head: normocephalic, atraumatic Eyes: sclerae normal ENT: hearing grossly normal Neck: supple, trachea midline Respiratory/Chest: chest non-tender, lungs clear, normal breath sounds, no respiratory distress, no accessory muscle use Cardiovascular: regular rate, rhythm, no murmur Abdomen/GI: soft, no organomegaly, no pulsatile mass, + tenderness (RUQ, negative Muphy's sign), + pertinent finding (Midline laparotomy incision from diaphragm to just below umbilicus. obese abdomen) Neurologic/Psych: alert, normal mood/affect, oriented x 3 Skin: normal color, warm/dry, no rash Hospital Course (1) Acute cholecystitis Chip was admitted to the Med/Surg floor and placed on IV fluids, IV antibiotics (Cefoxitin 2 gms IV q 8 hours), IV pain medication prn and Zofran prn. Hospital day # 1 he was feeling considerably better and pain was minimal however his labs still indicated leukocytosis of 13.44 and total bilirubin had elevated to 1.5 and direct bilirubin to 0.3. Slight elevation in alk phos at 119. He was tolerating clear liquid diet. A HIDA scan showed findings of acalculous acute cholecystitis and cystic duct obstruction. HD # 2 Again patient feeling well, no abdominal pain, nausea,vomiting, or fever or chills. Still tolerating clear liquids and was placed on full liquids. Total bilirubin however again elevated to 2.0 and direct stable but high at 0.3. Alk phos stable but elevated at 119. An MRCP was ordered which showed findings of acute cholecystitis and pericholecystic edema and some edema in the pancreaticoduodenal groove. Still had leukocytosis of 12.81 despite 48 hours of antibiotics. Patient stated if he were to need surgery he would want to be where his surgeon who did his hernia repairs is which [place] [facility] [place] given the extent of abdominal surgeries and size of mesh. Patient elected for transfer to [place] for further evaluation and management. Overall hospital course was uneventful. Total Time Total Time Spent (min): 30 Total Time Includes: discharge planning Discharge Instructions As given to patient and patient will have discharge instructions from [facility] [place]. Copies To Primary Care Provider: Bryan Husain M.D. (MEDICAL).
[2017-01-24 22:57] VITALS: BP 121/68; PULSE 67; TEMP 36.9; O2SAT 95
[2017-01-25] MEDS: SODIUM CHLORIDE 0.9% 1000ML 1,000 ML IV SCH ×2 (05:31→11:18)
[2017-01-25] MEDS: CEFOXITIN IV 2,000 MG in DEXTROSE 5% 50ML 50 ML IV SCH ×2 (05:41→10:28)
[2017-01-25 05:56] LABS: MEAN CELL VOLUME 92.4 fL (80-100); MEAN CORPUSCULAR HEMOGLOBIN 31.5 pg (25-34); MEAN CORPUSCULAR HGB CONC 34.1 g/dl (32-36); MEAN PLATELET VOLUME 10.8 fL (7.4-10.4); PLATELET COUNT 165 K/uL (130-400); RED BLOOD COUNT 4.76 M/uL (4.7-6.1); WHITE BLOOD COUNT 9.95 K/uL (4.8-10.8)
[2017-01-25 06:24] LABS: BUN/CREATININE RATIO 13.2 (10-20); CALCIUM 8.4 mg/dl (8.5-10.1); CREATININE 0.84 mg/dl (0.60-1.40); POTASSIUM 3.8 mmol/L (3.5-5.1)
[2017-01-25 07:09] VITALS: BP 124/77; PULSE 61; TEMP 36.6; O2SAT 94
[2017-01-25] MEDS ORDERED: METR500T PO (10:45)
[2017-01-25] MEDS ORDERED: CIPR-255 PO (10:45)
[2017-01-25] MEDS ORDERED: HYDR-5688 PO (10:47)
--- NOTE | 2017-01-25 10:57 | Surgery Progress Note ---
Surgery Progress Note Date of Service Jan 25, 2017. Subjective Post OP Day: HD # 3 + bowel movement, + diet (tolerating full liquids), + feeling well, + flatus, + pain controlled, No SOB, No chest pain, No complaints, No nausea, No vomiting Objective Vital Signs: Date Time Temp Pulse Resp B/P Pulse Ox O2 Delivery O2 Flow Rate FiO2 01/25/17 07:45 Room Air 01/25/17 07:09 36.6 61 19 124/77 94 Room Air 01/24/17 22:57 36.9 67 16 121/68 95 Room Air 01/24/17 20:45 Room Air 01/24/17 15:55 37.4 81 17 132/77 95 Room Air General Appearance: WD/WN, no apparent distress Head: normocephalic, atraumatic Neck: trachea midline Respiratory/Chest: no respiratory distress, no accessory muscle use Abdomen: non tender, non distended, soft, no organomegaly Extremities: normal inspection, no pedal edema Laboratory Results: Results Past 24 Hours Test 01/25/17 05:37 Range/Units White Blood Count 9.95 4.8-10.8 K/uL Red Blood Count 4.76 4.7-6.1 M/uL Hemoglobin 15.0 14.0-18.0 g/dL Hematocrit 44.0 42-52 % Mean Corpuscular Volume 92.4 80-100 fL Mean Corpuscular Hemoglobin 31.5 25-34 pg Mean Corpuscular Hemoglobin Concent 34.1 32-36 g/dl RDW Standard Deviation 46.2 36.4-46.3 fL RDW Coefficient of Variation 13.5 11.5-14.5 % Platelet Count 165 130-400 K/uL Mean Platelet Volume 10.8 7.4-10.4 fL Sodium Level 143 136-145 mmol/L Potassium Level 3.8 3.5-5.1 mmol/L Chloride Level 110 98-107 mmol/L Carbon Dioxide Level 25 21-32 mmol/L Anion Gap 8.0 3-11 mmol/L Blood Urea Nitrogen 11 7-18 mg/dl Creatinine 0.84 0.60-1.40 mg/dl Est Creatinine Clear Calc Drug Dose 127.1 ml/min Estimated GFR () 115.0 Estimated GFR (Non- 99.3 BUN/Creatinine Ratio 13.2 10-20 Random Glucose 84 70-99 mg/dl Calcium Level 8.4 8.5-10.1 mg/dl Total Bilirubin 1.2 0.2-1 mg/dl Direct Bilirubin 0.2 0-0.2 mg/dl Aspartate Amino Transf (AST/SGOT) 20 15-37 U/L Alanine Aminotransferase (ALT/SGPT) 47 12-78 U/L Alkaline Phosphatase 112 45-117 U/L Total Protein 5.9 6.4-8.2 gm/dl Albumin 2.9 3.4-5.0 gm/dl Globulin 3.0 2.5-4.0 gm/dl Albumin/Globulin Ratio 1.0 0.9-2 Assessment & Plan (1) Acute cholecystitis Status: Acute Acute acalculous Cholecystitis - RUQ abdominal pain resolved - CT scan and US unequivocal - HIDA scan showing cyst duct obstruction - Total bilirubin decreased to 1.2 and direct bilirubin within normal limits. LFTS within normal limits - Leukocytosis resolved Plan: Transfer to [facility] cancelled Will advance diet to soft diet and if patient tolerated discharge home today with oral Cipro/Flagyl x 1 week Pt will schedule outpatient follow-up with [facility] surgeons in regards to acute acalculous cholecystitis, advised if her were to develop abdominal pain again after discharge he should go to [facility] emergency department. Will also given Rx for [place] prn, advised patient to only take if absolutely needed Advised to avoid fatty/greasy meals I have discussed this patient with Dr. Arango who is in agreement with above stated findings and treatment plan.
[2017-01-25 11:30] VITALS: BP 124/77; PULSE 61; TEMP 36.6; O2SAT 94
== END 2017-01-25 14:41 | disposition home or self-care (01) | DRG 444 ==
LOC: ENRESERVDT → ENRESERVTM → C.EDB 08:24 → C.MSW 11:40 → OBSVTOIN 01-23 07:49
PROVIDERS: ADMIT Surgery; ATTEND Surgery
DX: K81.0 Acute cholecystitis (principal); K83.1 Obstruction of bile duct; M10.9 Gout, unspecified; I10 Essential (primary) hypertension; N20.0 Calculus of kidney; Z85.028 Personal history of other malignant neoplasm of stomach; Z79.82 Long term (current) use of aspirin